=== PATIENT | female | born 1930 | race Caucasian/White ===

== ENCOUNTER 2020-01-14 14:39 | Observation (INO) ==
[2020-01-14 15:59] LABS: Albumin 3.7 G/DL (3.4-5.0); Bilirubin,Total 0.4 MG/DL (0.2-1.0); Osmolality,Calculated 281.8 MOS/KG (273-304); Total Protein 7.2 G/DL (6.4-8.3)
[2020-01-14 16:16] LABS: Basophils % 0.1 % (0.0-0.8); Eosinophils # 0.3 10*3/uL (0.0-0.87); Eosinophils % 3.3 % (0.00-10.9); Hematocrit 38.7 VOL% (35.7-47.0); Hemoglobin 12.8 GM/DL (12.0-16.0); Immature Granulocytes % 0.9 %; Immature Granulocytes Absolute 0.09 #; Lymphocytes # 1.6 10*3/uL (1.4-4.0); Lymphocytes % 15.8 % (21.3-54.2); Mean Corpuscular HGB Conc 33.1 GM/DL (32-36); Mean Corpuscular Volume 90.4 FL (87-102); Mean Platelet Volume 10.1 FL (9.6-12.0); Neutrophils % 68.9 % (38.7-73.9); Platelet Count 221 T/CUMM (130-400); Red Blood Count 4.28 MC/CUMM (3.8-5.5); Red Cell Distribution Width 13.9 % (9.3-17.3); White Blood Count 10.2 T/CUMM (4-12)
[2020-01-14 16:26] LABS: Bilirubin,Urine Negative (Negative); Blood, Urine Negative (Negative); Glucose,Urine (UA) Negative (Negative); Hyaline Casts,Urine 8 /LPF (0-3); Ketones,Urine Negative (Negative); Mucus,Urine Occasional /LPF (Occasional); Nitrite,Urine Positive (Negative); Protein,Urine Negative; Urine Appearance CLEAR (Clear); Urine Color Amber (Yellow); Urine Specific Gravity 1.017 (1.001-1.035); Urine Urobilinogen < 2.0 EU/DL (0.2-1.0); WBC,Urine 1 /HPF (0-6)
[2020-01-14] MEDS ORDERED: LABETALOL 20 MG/4 ML SYRINGE IV PRN (16:53)
[2020-01-14] MEDS ORDERED: ASPIRIN EC 325 MG TABLET PO PRN (17:08)
[2020-01-14] MEDS ORDERED: ACETAMINOPHEN 500 MG TABLET PO PRN (17:08)
[2020-01-14 17:17] LABS: Partial Thromboplastin Time 20.3 SECS (23.9-33.8)
[2020-01-14] MEDS ORDERED: DEXTROSE 50% 25 GM/50 ML VIAL IV PRN (17:56)
[2020-01-14] MEDS ORDERED: GLUCAGON 1 MG VIAL IM PRN (17:56)
[2020-01-14] MEDS: SULFAMETHOX/TRIMETHOPRIM 800-160 MG TABLET PO SCH (18:25)
[2020-01-14] MEDS: ENOXAPARIN 30 MG/0.3 ML SYRINGE SUBCUT SCH (18:25)
[2020-01-14] MEDS ORDERED: SODIUM CHLORIDE 0.9% 1,000 ML IV SCH (18:30)
[2020-01-14] MEDS ORDERED: INFLUENZA VIRUS VACCINE 0.5 ML SYRINGE IM ONE (19:14)
[2020-01-14] MEDS: PANTOPRAZOLE 40 MG TABLET PO SCH (20:55)
[2020-01-14] MEDS: BISACODYL 5 MG TABLET PO SCH (20:55)
[2020-01-14] MEDS: PHENAZOPYRIDINE 95 MG TABLET PO SCH (20:55)
[2020-01-14] MEDS: busPIRone 15 MG TABLET PO SCH (20:55)
[2020-01-14] MEDS: FLUoxetine 20 MG CAPSULE PO SCH (20:56)
[2020-01-14] MEDS: INSULIN REGULAR 100 UNIT/ML SUBCUT SCH (22:39)
[2020-01-15 05:50] LABS: Calcium 8.6 MG/DL (8.5-10.1); Osmolality,Calculated 287.4 MOS/KG (273-304)
[2020-01-15 05:52] LABS: Risk Ratio 6.62
[2020-01-15] MEDS: FLUoxetine 20 MG CAPSULE PO SCH ×2 (08:28→20:14)
[2020-01-15] MEDS: busPIRone 15 MG TABLET PO SCH ×4 (08:29→20:13)
[2020-01-15] MEDS: BISACODYL 5 MG TABLET PO SCH ×2 (08:29→20:13)
[2020-01-15] MEDS: INSULIN REGULAR 100 UNIT/ML SUBCUT SCH ×4 (08:30→20:19)
[2020-01-15] MEDS: PANTOPRAZOLE 40 MG TABLET PO SCH ×2 (08:30→20:13)
[2020-01-15] MEDS: CLOPIDOGREL 75 MG TABLET PO SCH (08:30)
[2020-01-15] MEDS: SULFAMETHOX/TRIMETHOPRIM 800-160 MG TABLET PO SCH ×2 (08:30→20:14)
[2020-01-15] MEDS: LISINOPRIL/HCTZ 10-12.5 MG TABLET PO SCH (08:31)
[2020-01-15] MEDS: PHENAZOPYRIDINE 95 MG TABLET PO SCH ×2 (08:36→20:13)
[2020-01-15] MEDS ORDERED: OLANZapine 2.5 MG TABLET PO SCH (14:00)
[2020-01-15] MEDS: ENOXAPARIN 30 MG/0.3 ML SYRINGE SUBCUT SCH (17:02)
[2020-01-15] MEDS ORDERED: DONEPEZIL 5 MG TABLET PO SCH (21:00)
[2020-01-15] MEDS ORDERED: ATORVASTATIN 20 MG TABLET PO SCH (21:00)
[2020-01-16] MEDS: INSULIN REGULAR 100 UNIT/ML SUBCUT SCH (07:53)
[2020-01-16 08:30] VITALS: BP 148/78
[2020-01-16] MEDS: CLOPIDOGREL 75 MG TABLET PO SCH (08:34)
[2020-01-16] MEDS: LISINOPRIL/HCTZ 10-12.5 MG TABLET PO SCH (08:34)
[2020-01-16] MEDS: FLUoxetine 20 MG CAPSULE PO SCH (08:34)
[2020-01-16] MEDS: SULFAMETHOX/TRIMETHOPRIM 800-160 MG TABLET PO SCH (08:34)
[2020-01-16] MEDS: BISACODYL 5 MG TABLET PO SCH (08:35)
[2020-01-16] MEDS: busPIRone 15 MG TABLET PO SCH (08:35)
[2020-01-16] MEDS: PHENAZOPYRIDINE 95 MG TABLET PO SCH (08:35)
[2020-01-16] MEDS: PANTOPRAZOLE 40 MG TABLET PO SCH (08:35)
== END 2020-01-16 10:45 | disposition home or self-care (01) ==
LOC: N.ED 14:39 → N.EDINP 14:39 → SUATTDRO 16:53 → N.EDINP 18:40 → N.4E 18:45
PROVIDERS: ADMIT Family Medicine; ATTEND Internal Medicine